=== PATIENT | female | born 1975 | race Caucasian/White ===

== ENCOUNTER 2022-02-07 08:07 | Emergency (ER) | payer BC ==
[~2022-02-07] VITALS: Ht 167.6 cm; Wt 67.3 kg
[2022-02-07 08:17] VITALS: BP 146/88
== END 2022-02-07 08:52 | disposition home or self-care (01) ==
LOC: ER 08:08
DX: J02.8 Acute pharyngitis due to other specified organisms (principal); Z20.822 Contact with and (suspected) exposure to COVID-19; Z88.6 Allergy status to analgesic agent; Z88.1 Allergy status to other antibiotic agents
CPT/HCPCS: 87081; 87635; 87880; 99283; C9803

== ENCOUNTER 2022-03-02 05:43 | Day surgery (SDC) | payer BC ==
[2022-02-23 14:12] LABS: BASOPHILS # (AUTO) 0.1 X10'3 (0-0.2); BASOPHILS % (AUTO) 0.6 % (0-1); EOSINOPHILS # (AUTO) 0.2 X10'3 (0-0.9); EOSINOPHILS % (AUTO) 2.8 % (0-6); LYMPHOCYTES # (AUTO) 3.2 X10'3 (1.1-4.8); LYMPHOCYTES % (AUTO) 36.5 % (21-51); MEAN CORPUSCULAR HEMOGLOBIN 32.7 PG (27.0-31.0); MEAN CORPUSCULAR VOLUME 96.3 FL (78-98); MEAN PLATELET VOLUME 8.6 FL (7.4-10.4); MONOCYTES # (AUTO) 0.7 X10'3 (0-0.9); MONOCYTES % (AUTO) 7.6 % (2-12); NEUTROPHILS # (AUTO) 4.6 X10'3 (1.8-7.7); NEUTROPHILS % (AUTO) 52.5 % (42-75); PRE OP HEMATOCRIT 42.3 % (35.0-45.0); PRE OP HEMOGLOBIN 14.4 g/dL (12.0-16.0); PRE OP PLATELET COUNT 229 X10'3 (140-440); RED BLOOD COUNT 4.39 X10'6 (4.20-5.60); RED CELL DISTRIBUTION WIDTH 12.9 % (11.5-14.5)
[2022-02-23 14:44] LABS: ALBUMIN 3.6 G/DL (3.4-5.0); ALKALINE PHOSPHATASE 84 IU/L (46-116); BLOOD UREA NITROGEN 11 MG/DL (7-18); BUN/CREATININE RATIO 18.3 (6.6-38.0); CALCIUM 8.6 MG/DL (8.5-10.1); CHLORIDE 103 MMOL/L (99-107); PRE OP ALT 20 U/L (30-65); PRE OP ANION GAP 6 (8-16); PRE OP AST 22 U/L (10-37); PRE OP BILIRUB, TOTAL 0.3 MG/DL (0.0-1.0); PRE OP GLUCOSE 93 MG/DL (70-104); PRE OP POTASSIUM 4.1 MMOL/L (3.4-5.1); PRE OP SODIUM 137 MMOL/L (135-145); TOTAL CARBON DIOXIDE 28.1 MMOL/L (24-32); TOTAL PROTEIN 7.3 G/DL (6.4-8.2); eGFR > 90 ML/MIN
[2022-02-23 14:51] LABS: HCG SERUM QL NEGATIVE
[2022-03-02] VITALS (10 sets, daily range): BP systolic 111–130; BP diastolic 72–86
[~2022-03-02] VITALS: Ht 167.6 cm; Wt 70.0 kg
[~2022-03-02 05:43] MED LIST: ESTR0.25 TOP; clindamycin-Cleocin 900mg/D5W 50 ML IV ONE; famotidine 20mg tablet PO ONE; ringers solution, lacted 1,000 ML IV SCH
[2022-03-02] MEDS ORDERED: triamcinolone acetonide 40mg/ml inj ONE (06:53)
[2022-03-02] MEDS ORDERED: epiNEPHrine 1 mg/ml 30ml MDV ONE (06:53)
[2022-03-02] MEDS ORDERED: ROPIVAcaine 0.5% (5mg/ml) 30ml vial ONE ×2 (06:53→07:16)
[2022-03-02] MEDS ORDERED: lidocaine 1%/epinephrine 1:100,000 inj. 50ml multi-dose vial ONE (06:53)
[2022-03-02] MEDS ORDERED: cloNIDine hcl/PF 100mcg/ml inj ONE (07:16)
[2022-03-02] MEDS ORDERED: fentaNYL/PF 50MCG/1 ML 2ML syringe ONE (07:19)
[2022-03-02] MEDS ORDERED: propofol inj 20 ML IV ONE (07:19)
[2022-03-02] MEDS ORDERED: MIDAZolam 1 MG/ML 5ML VIAL ONE (07:19)
[2022-03-02] MEDS ORDERED: proCHLORperazine 10 MG/2 ml inj IV PRN (07:30)
[2022-03-02] MEDS ORDERED: morphine 2 MG/ML inj. syringe IV PRN (07:30)
[2022-03-02] MEDS ORDERED: meperidine/PF 25mg/ml syringe IV PRN ×3 (07:30)
[2022-03-02] MEDS ORDERED: ondansetron/PF 4mg/2ml inj IV PRN (07:30)
[2022-03-02] MEDS ORDERED: ringers solution, lacted 1,000 ML IV SCH (07:30)
[2022-03-02] MEDS ORDERED: morphine 4 MG/ML inj SYRINge IV PRN (07:30)
[2022-03-02] MEDS ORDERED: sevoflurane 250ml liquid IH ONE (07:33)
[2022-03-02] MEDS ORDERED: ondansetron/PF 4mg/2ml inj ONE (09:04)
[2022-03-02] MEDS ORDERED: dexamethasone sod phosphate 4mg/ml inj. ONE (09:04)
--- NOTE | 2022-03-02 09:30 | NUR ---
PT ARRIVED TO [facility]IA [facility] ACCOMPANIED BY DR. ESTRELLA-ANESTHESIA REPORT GIVEN, PT WAKING UP, VSS, DENIES PAIN, +PULSES AND PINK WARM FINGERS TO RIGHT ARM IN SLING, DRSG-CDI, ICE TO INCISION, SCDS ON, PIV 20G TO LEFT HAND.
--- NOTE | 2022-03-02 11:10 | NUR ---
PT AWAKE, VSS, UP GETTING DRESSED, SLING IN PLACE, DRSG-CDI, CSM INTACT TO RIGHT HAND, NERVE BLOCK IN PLACE-DENIES PAIN, D/C PIV-CANULA INTACT, D/C INSTRUCTIONS GIVEN TO PT-ALL QUESTIONS ANSWERED, TAKEN VIA W/C WITH ALL BELONGINGS TO HUSBANDS VEHICLE FOR TRANSPORT HOME.
== END 2022-03-02 11:10 | disposition home or self-care (01) ==
LOC: PAS 05:43
PROVIDERS: ATTEND Orthopaedic Surgery
DX: S43.431A Superior glenoid labrum lesion of right shoulder, initial encounter (principal); S46.011A Strain of muscle(s) and tendon(s) of the rotator cuff of right shoulder, initial encounter; M75.51 Bursitis of right shoulder; M75.41 Impingement syndrome of right shoulder; M75.21 Bicipital tendinitis, right shoulder; G89.18 Other acute postprocedural pain; F17.210 Nicotine dependence, cigarettes, uncomplicated; M19.90 Unspecified osteoarthritis, unspecified site; Z88.8 Allergy status to other drugs, medicaments and biological substances; Z90.49 Acquired absence of other specified parts of digestive tract; Z98.84 Bariatric surgery status; Z90.710 Acquired absence of both cervix and uterus; Z98.890 Other specified postprocedural states; Z79.899 Other long term (current) drug therapy; X58.XXXA Exposure to other specified factors, initial encounter; Y92.89 Other specified places as the place of occurrence of the external cause; Y93.89 Activity, other specified; Y99.8 Other external cause status
CPT/HCPCS: 23430; 29823; 29826; 36415; 64415; 76942; 80053; 82948; 84703; 85025; 93005; C1713; J0171; J0735; J1100; J2175; J2250; J2405; J2704; J2795; J3010; J3301; J3490; J7030; J7120; Z7506; Z7508; Z7512; A4215; A4565; A4618; A6253; A6449; A7000

== ENCOUNTER 2025-06-16 10:04 | Emergency (ER) | payer BC, MEDICARE ==
[~2025-06-16] VITALS: Ht 167.6 cm; Wt 57.3 kg
[~2025-06-16 10:04] MED LIST changes: -clindamycin-Cleocin 900mg/D5W 50 ML IV ONE; -famotidine 20mg tablet PO ONE; -ringers solution, lacted 1,000 ML IV SCH
--- NOTE | 2025-06-16 10:51 | Physician Documentation ---
History of Present Illness ~ Chief Complaint: Vaginal pain Stated Complaint: INFECTION Time Seen by MD: 10:43 Primary Medical Doctor: AMEYA Source: patient Mode of Arrival: POV [facility] 49-year-old female patient with a history of gastric bypass, brain surgery for Chiari malformation, complete hysterectomy, appendectomy, cholecystectomy, status post left total hip replacement, breast reduction ambulatory came to the emergency room for vaginal pain and probably chronic vaginitis. Patient stated that February of 2025 she has yeast infection and then in April 07 she was diagnosed with advanced vaginitis secondary to trichomoniasis and she was put on Flagyl and doxycycline and May 11 she was also again diagnosed with HSV two and valacyclovir was prescribed. Despite all these treatment she is still have a lot of pain and thick vaginal discharge. Patient is not diabetic. She smoked half a pack a day. She consumes p.o. weed. No constitutional symptoms. Medication Reconciliation Allergies: Coded Allergies: naproxen (Unverified Allergy, Intermediate, GI upset, 02/07/22) amoxicillin (Verified Allergy, Unknown, 08/09/17) Scheduled Azithromycin (Zithromax), 2 TAB PO ONCE Estradiol (Divigel), 1 PKT TOP DAILY, (Reported) Tinidazole (Tinidazole), 4 TAB PO ONCE Past Medical History Past Medical History: No Pertinent History Past Surgical History: no surgical history Drug Use: none Lives with: Spouse Lives In: Home Review of Systems ROS As stated above in the HPI, otherwise all systems are reviewed and negative. Physical Exam Vital Signs: Temperature: 97.5, Source: Temporal, Heart Rate: 89, Respiratory Rate: 18, BP: 121/87, Pulse Oximetry: 100, Weight: 57.300 Oxygen Flow Rate: 0 Physical Exam Reviewed vital signs and they are well within normal range. Const: Not in acute cardiopulmonary distress Head: Atraumatic Eyes: Normal Conjunctiva ENT: Normal External Ears, Nose and Mouth. Moist mucous membranes Neck: Full range of motion. No meningismus Resp: Clear to auscultation bilaterally. Normal work of breathing Cardio: Regular rate and rhythm, no murmurs. Skin well perfused, heart rate 80/minute Abd: Soft, non-tender, non-distended. Normal bowel sounds. No rebound or guarding Skin: No petechiae or rashes. Warm and dry Back: No midline or flank tenderness Ext: No cyanosis, or edema Neuro: Awake and alert Psych: Normal Mood and Affect Speculum examination of the female external genitalia was done by the resident. Progress Results/Orders Results/Orders Orders - BETO ELLSWORTH MD Regular Diet (06/16/25 Dinner) Completed Orders - BETO ELLSWORTH MD Cbc/Diff (06/16/25 10:43) Procalcitonin (06/16/25 10:43) BMP (06/16/25 10:43) Glucose (06/16/25 11:46) Ua With Microscopic (06/16/25 11:30) Hgb A1c (06/16/25 13:07) Vital Signs 06/16/25 06/16/25 06/16/25 06/16/25 10:20 11:33 11:35 11:36 Temp 97.5 97.5 Pulse 89 76 Resp 18 20 20 20 B/P (MAP) 121/87 121/75 (90) Pulse Ox 100 100 O2 Flow Rate 0 0 06/16/25 06/16/25 06/16/25 11:38 12:28 13:46 Temp 97.5 Pulse 70 71 Resp 16 14 B/P (MAP) 119/80 (93) 118/73 Pulse Ox 99 100 O2 Flow Rate 0 Laboratory Tests Test 06/16/25 11:01 06/16/25 11:30 06/16/25 11:45 06/16/25 11:46 White Blood Count 5.7 Red Blood Count 3.97 L Hemoglobin 11.8 L Hematocrit 35.0 Mean Corpuscular Volume 88.3 Mean Corpuscular Hemoglobin 29.6 Mean Corpuscular Hemoglobin Concent 33.6 Red Cell Distribution Width 14.7 H Platelet Count 196 Mean Platelet Volume 8.1 Neutrophils (%) (Auto) 64.9 Lymphocytes (%) (Auto) 23.9 Monocytes (%) (Auto) 9.1 Eosinophils (%) (Auto) 1.6 Basophils (%) (Auto) 0.5 Neutrophils # (Auto) 3.7 Lymphocytes # (Auto) 1.4 Monocytes # (Auto) 0.5 Eosinophils # (Auto) 0.1 Basophils # (Auto) 0.0 CBC Comment Sodium Level 140 Potassium Level 3.5 Chloride Level 105 Carbon Dioxide Level 28.6 Anion Gap 6 L Blood Urea Nitrogen 11 Creatinine 0.62 Estimated GFR/1.73 m2 > 90 BUN/Creatinine Ratio 17.7 Glucose Level 45 *L 77 Hemoglobin A1c 5.3 Calcium Level 8.2 L Albumin 2.9 L Procalcitonin 0.22 Chemistry Comments Urine Specimen Description Cln catch midstream Urine Color Yellow Urine Clarity Slightly cloudy Urine pH 5.5 Urine Specific [place] >=1.030 Urine Protein Negative Urine Glucose (UA) >=1000 H Urine Ketones Trace H Urine Occult Blood Trace-intact Urine Nitrite Negative Urine Bilirubin Small Urine Urobilinogen 0.2 Urine Leukocyte Esterase Negative Urine RBC 3-10 Urine WBC 0-4 Urine Squamous Epithelial Cells Many Urine Transitional Epithelial Cells Few Urine Bacteria Few Urine Mucus Few Volume Urine Centrifuged 10 ml Urine Comment Glucometer 80 Medical Decision Making Findings ER Course/Med. Decision Making REVIEW of RECORD(S): Previous medical records here and/or external medical records, such as that provided directly by the patient, by EMS and/or outside medical facilities, if available, were reviewed. COMORBIDITIES multiple surgeries(no recent surgery), MDM During the physical examination, the findings suggestive of acute life- threatening condition such as JVD, tracheal deviation, acidotic breathing, noisy stridorous breath sounds, pulses paradoxus, muffled heart sounds, unequal breath sounds, abdominal rigidity and rebound tenderness, focal neurological deficits, cool clammy skin, severe hypotension, severe tachycardia or bradycardia are absent. Patient presenting for chronic vaginal pain. Vital signs reviewed. Patient is hemodynamically stable and does not meet SIRS criteria. Patient appears nontoxic on exam. CBC essentially normal but BMP showed hypoglycemia. UA is clean but glycosuria. Patient has poly urea and that has been going on since her hip replacement years ago. Therefore I ordered the hemoglobin A1c just in case . I will probably put her on azithromycin 2 g p.o. old single dose together with tinidazole. TREATMENT/DISPOSITION: The patient's presentation is most consistent with chronic vaginitis Prior to discharge I independently reviewed the patients past medical history, clinical risk factors, comorbidities, and social determinants of health and diagnostic studies. The patient appears to be a safe discharge home with close outpatient PCP follow-up I had extensive discussion with patient regarding management, disposition and follow up. Potential symptom etiology was discussed, and shared decision making occurred. They will return immediately if symptoms worsen, do not improve, or they have any further concerns. Prior to discharge all questions were addressed. The patient is aware that the purpose of this visit was to screen for an acute medical emergency requiring emergent stabilization. Chronic and occult conditions, including malignancies, have not been ruled out. If patient is unable to arrange follow-up as stated in the discharge instructions and further discussed with the patient directly, or their symptoms worsen/become more concerning, they are to return to the ER for reassessment immediately. Prior to leaving the department, the patient has a plan for discharge, has decision making capacity, and acknowledges an understanding of the verbal and written discharge instructions. SOCIAL DETERMINANTS: Patient demonstrates no obvious challenges to following up as an outpatient although did consider whether patient had any barriers to access care including homelessness, Food insecurity, Mental health, Substance abuse, Disabilities, Limited access to medical care, Difficulty finding transport, Insurance issues, Refusal of care or testing due to cost concerns. MEDICAL SCREENING: I have discussed with the patient the non-definitive nature of the emergency screening exam, diagnosis and the possibility of a variety of conditions which may present in atypically benign fashion and stressed the importance of close follow-up for definitive diagnosis and treatment. We discussed signs and symptoms that should be watched for which might indicate a more serious or new condition that would benefit from emergency reevaluation and the patient has verbalized understanding to this and my other detailed discharge instructions and promises compliance. I have referred him back to his primary physician of course for a more detailed evaluation and more definitive diagnoses. DISCLAIMER: Inadvertent spelling and grammatical errors are likely due to EMR/dictation software use and do not reflect on the overall quality of patient care. Note that the electronic time recorded on this note does not necessarily reflect the actual time of the patient encounter. Departure Disposition: 01 HOME / SELF CARE / HOMELESS Impression: Primary Impression: Chronic vaginitis Condition: Stable Discharge Instructions: Vaginitis Additional Instructions: Thank you for coming to our Emergency Department today. Please see a mid level java developer through your primary care provider as soon as possible. Please ask your nurse or provider if you have questions about your care today and do not leave until all your questions have been answered. Please use any medications given as directed and follow-up with your doctor (or the doctor you were referred to) in the next 1-3 days. Your primary care doctor can help to coordinate outpatient specialty care and provide authorization for specialty referral as needed. If you do not have a primary care doctor you may follow up at a [facility]. You may also use motrin and tylenol as needed for fever and/or pain unless instructed otherwise by your provider or nurse. Indications for more urgent follow-up have been discussed, but you may return to the Emergency Department at ANY time for any worrisome or worsening symptoms. [facility] Facilities: [facility] Facilities: [facility]: [facility] [place] Address:[address] [place] [id number] [facility]: [place] Address:[facility] [place] [address] [facility]: Telemedicine Address:[address] [place] [id number] [facility] Address:[address] [place] [address] Registration Billing Pharmacy Referrals [facility] Address:[address] [place] [address] Referrals: NO PRIMARY CARE PROVIDER (PCP) Prescriptions Azithromycin (Zithromax) 500 Mg Tablet 2 TAB PO ONCE for 1 Day, #2 TAB Prov: BETO ELLSWORTH MD 06/16/25 Tinidazole (Tinidazole) 500 Mg Tablet 4 TAB PO ONCE for 1 Day, #4 TAB 0 Refills Prov: BETO ELLSWORTH MD 06/16/25 Education Educated regarding: diagnosis, need for follow up Signature Scribe Signature: No scribe Attestation: My dictation BETO ELLSWORTH MD Jun 16, 2025 10:51
[2025-06-16 11:18] LABS: MEAN PLATELET VOLUME 8.1 FL (7.4-10.4); RED CELL DISTRIBUTION WIDTH 14.7 % (11.5-14.5)
[2025-06-16 11:30] LABS: CREATININE 0.62 MG/DL (0.40-0.90); TOTAL CARBON DIOXIDE 28.6 MMOL/L (24-32); eCRCL 99 ML/MIN; eGFR > 90 ML/MIN
[2025-06-16 11:55] LABS: LEUKOCYTE ESTERASE ,URINE NEGATIVE (Neg); NITRITES, URINE NEGATIVE (Neg); OCCULT BLOOD,URINE TRACE-INTACT (Neg)
[2025-06-16 12:03] LABS: UA COLLECTION TYPE CLN CATCH MIDSTREAM
[2025-06-16 12:04] LABS: MUCUS STRANDS FEW /LPF (Neg); SQUAMOUS EPITHELIAL CELL,UR MANY /LPF (FEW)
[2025-06-16 12:28] VITALS: TEMP 97.5
[2025-06-16] MEDS ORDERED: TINI500T18 PO (13:18)
[2025-06-16] MEDS ORDERED: AZIT500T PO (13:18)
[2025-06-16 13:46] VITALS: BP 118/73; PULSE 71; RESP 14; O2SAT 100
== END 2025-06-17 22:57 | disposition home or self-care (01) ==
LOC: ER 10:05
DX: N76.0 Acute vaginitis (principal); F17.210 Nicotine dependence, cigarettes, uncomplicated; Z88.1 Allergy status to other antibiotic agents; Z88.6 Allergy status to analgesic agent; Z90.710 Acquired absence of both cervix and uterus; Z79.899 Other long term (current) drug therapy
CPT/HCPCS: 36415; 80048; 81001; 82947; 82948; 83036; 84145; 85025; 96374; 99284; J1171

== ENCOUNTER 2025-08-09 10:51 | Emergency (ER) | payer BC, MEDICARE ==
[~2025-08-09] VITALS: Ht 167.6 cm; Wt 56.4 kg
[~2025-08-09 10:51] MED LIST changes: +TINI500T18 PO
[2025-08-09 11:00] VITALS: BP 114/73; PULSE 83; RESP 19; TEMP 97.8; O2SAT 94
== END 2025-08-09 12:35 | disposition left against medical advice (07) ==
LOC: ER 10:51
DX: R10.20 Pelvic and perineal pain unspecified side (principal); R21 Rash and other nonspecific skin eruption; J02.9 Acute pharyngitis, unspecified; Z53.21 Procedure and treatment not carried out due to patient leaving prior to being seen by health care provider; Z88.8 Allergy status to other drugs, medicaments and biological substances; Z88.1 Allergy status to other antibiotic agents
CPT/HCPCS: 99281